=== PATIENT | male | born 1965 | race Caucasian/White ===

== ENCOUNTER 2017-04-14 00:15 | Inpatient (IN) | payer BC ==
[~2017-04-14] VITALS: Ht 172.7 cm; Wt 91.1 kg
[~2017-04-14 00:15] MED LIST: HYDROCODON-ACE1 EAC7 PO; VICODIN 5-3001 EACH PO
[2017-04-14 01:00] LABS: CHLORIDE 100 mEq/L (99-109); POTASSIUM 4.3 mEq/L (3.7-5.4); SODIUM 140 mEq/L (136-147)
[2017-04-14 01:02] LABS: HEMATOCRIT 43.4 % (38.0-50.0); MCH 29.6 PG (29.0-34.0); MCHC 31.8 G/DL (30.0-36.0); MCV 93.1 FL (86-99); MEAN PLAT.VOLUME 9.7 uM^3 (9.0-12.4); PLATELET COUNT 329 K/uL (156-360); RBC DIS.WIDTH-CV 13.1 % (11.8-14.6); RBC DIS.WIDTH-SD 44.5 % (39-53); RED BLOOD COUNT 4.66 M/uL (4.00-5.50); WHITE BLOOD COUNT 16.9 K/uL (4.1-10.2)
[2017-04-14 01:03] LABS: ANION GAP 19 MEQ/L (2-14)
[2017-04-14 01:05] LABS: GFR ESTIMATE (CALCULATED) 40 mL/min/
[2017-04-14 01:06] LABS: UREA NITROGEN (BUN) 18 mg/dL (9-23)
[2017-04-14 01:11] LABS: TROP-I INTERPRETATION NEGATIVE; TROPONIN-I < 0.01 ng/mL (0.0-0.30)
[2017-04-14 01:23] LABS: GLUCOSE 419 mg/dL (70-99)
[2017-04-14 01:47] LABS: SERUM ETHYL ALCOHOL < 10 mg/dL
[2017-04-14 03:21] LABS: BASE EXCESS 1.3 mEq/L (-3 to +3); BICARBONATE 30.1 mEq/L (22-26); CARBOXY HGB 1.9 % (0-5); METHEMOGLOBIN 1.2 % (0-1.5); PCO2 64 mm Hg (35-45); PO2 69 mm Hg (80-100); pH 7.28 (7.35-7.45)
[2017-04-14 03:22] LABS: FI02 60 %; O2 FLOW 50 L/MIN; SITE LB; TOTAL RESP RATE 22 resp/min
[2017-04-14 03:29] LABS: AMPHETAMINE NEGATIVE (500 ng/mL); BARBITURATES NEGATIVE (200 ng/mL); BENZODIAZEPINES NEGATIVE (150 ng/mL); COCAINE NEGATIVE (150 ng/mL); METHADONE NEGATIVE (200 ng/mL); METHAMPHETAMINE NEGATIVE (500 ng/mL); OPIATES (MORPHINE) NEGATIVE (100 ng/mL); PHENCYCLIDINE NEGATIVE (25 ng/mL); THC CANNABINOIDS NEGATIVE (50 ng/mL); TRICYCLIC ANTIDEPRESSANTS NEGATIVE (300 ng/mL)
[2017-04-14 03:30] LABS: INTERNAL CONTROLS VALID? YES; OXYCODONE PRESUMPTIVE POSITIVE (100 ng/mL); PROPOXYPHENE NEGATIVE (300 ng/mL)
[2017-04-14 05:25] LABS: POINT-OF-CARE METER ID UU13113702
[2017-04-14 05:55] LABS: TROP-I INTERPRETATION NEGATIVE; TROPONIN-I 0.11 ng/mL (0.0-0.30)
[2017-04-14 06:15] LABS: HEMATOCRIT 41.9 % (38.0-50.0); MCH 29.9 PG (29.0-34.0); MCHC 32.9 G/DL (30.0-36.0); MCV 90.9 FL (86-99); MEAN PLAT.VOLUME 9.2 uM^3 (9.0-12.4); PLATELET COUNT 265 K/uL (156-360); RBC DIS.WIDTH-CV 13.1 % (11.8-14.6); RBC DIS.WIDTH-SD 43.1 % (39-53); RED BLOOD COUNT 4.61 M/uL (4.00-5.50); WHITE BLOOD COUNT 7.3 K/uL (4.1-10.2)
[2017-04-14 07:45] LABS: POINT-OF-CARE METER ID UU13113781
[2017-04-14 07:51] VITALS: BP 114/61
[2017-04-14 10:44] LABS: POINT-OF-CARE METER ID UU13113781
[2017-04-14 12:24] LABS: TROP-I INTERPRETATION NEGATIVE; TROPONIN-I 0.19 ng/mL (0.0-0.30)
[2017-04-14 13:26] VITALS: BP 101/56
[2017-04-14] MEDS ORDERED: ACID CONTROL150 MG PO (14:06)
[2017-04-14] MEDS ORDERED: GLUCOSAMINE CH1 EAC2 PO (14:07)
[2017-04-14 15:11] VITALS: BP 99/57
[2017-04-14 16:06] LABS: POINT-OF-CARE METER ID UU14174216
[2017-04-14 19:28] VITALS: BP 117/57
[2017-04-14 21:20] LABS: POINT-OF-CARE METER ID UU13113781
[2017-04-14 22:12] LABS: Estimated Average Glucose 114 mg/dL (70-123); HEMOGLOBIN A1c (GLYCOHEMOGLOB) 5.6 % HGB (Below 5.7)
[2017-04-14 23:23] VITALS: BP 110/60
[2017-04-15 03:52] VITALS: BP 112/64
[2017-04-15 06:34] LABS: ALKALINE PHOSPHATASE 54 IU/L (3-129); ANION GAP 8 MEQ/L (2-14); CHLORIDE 100 MEQ/L (99-109); POTASSIUM 3.9 MEQ/L (3.7-5.4); SAMPLE HEMOLYSIS CHECK 0; SAMPLE ICTERIC CHECK 0; SAMPLE LIPEMIA CHECK 0; SODIUM 139 MEQ/L (136-147); TOTAL BILIRUBIN 0.5 MG/DL (0.0-1.0); UREA NITROGEN (BUN) 16 mg/dL (9-23)
[2017-04-15 06:35] LABS: GFR ESTIMATE (CALCULATED) > 59 mL/min/; GLUCOSE 109 mg/dL (70-99)
[2017-04-15 07:39] VITALS: BP 123/71
[2017-04-15 08:03] LABS: POINT-OF-CARE METER ID UU13113781
[2017-04-15 09:36] LABS: POINT-OF-CARE METER ID UU13113702
[2017-04-15 12:10] LABS: POINT-OF-CARE METER ID UU14174216
[2017-04-15] MEDS ORDERED: AUGMENTIN875 MG PO (15:45)
[2017-04-15] MEDS ORDERED: [UNRECOGNIZED DRUG - REMARK] (16:08)
[2017-04-15 16:19] LABS: POINT-OF-CARE METER ID UU14174216
[2017-04-15 17:17] VITALS: BP 128/68
== END 2017-04-15 17:24 | disposition home or self-care (01) | DRG 917 ==
LOC: EME 00:15 → 4EAST 04:30 → EDOF 04:30 → ENRESERV 04:31 → 4EAST 07:10
PROVIDERS: Emergency Medicine; Hospitalist; Internal Medicine; Physician Assistant
DX: T40.2X1A Poisoning by other opioids, accidental (unintentional), initial encounter (principal); J96.01 Acute respiratory failure with hypoxia; J96.02 Acute respiratory failure with hypercapnia; J81.0 Acute pulmonary edema; J69.0 Pneumonitis due to inhalation of food and vomit; N17.9 Acute kidney failure, unspecified; I48.0 Paroxysmal atrial fibrillation; T48.201A Poisoning by unspecified drugs acting on muscles, accidental (unintentional), initial encounter; T51.0X1A Toxic effect of ethanol, accidental (unintentional), initial encounter; R73.9 Hyperglycemia, unspecified; D72.823 Leukemoid reaction; K21.9 Gastro-esophageal reflux disease without esophagitis; F17.290 Nicotine dependence, other tobacco product, uncomplicated; Y92.009 Unspecified place in unspecified non-institutional (private) residence as the place of occurrence of the external cause; Z80.0 Family history of malignant neoplasm of digestive organs; Z80.1 Family history of malignant neoplasm of trachea, bronchus and lung; Z85.828 Personal history of other malignant neoplasm of skin; Z23 Encounter for immunization
CPT/HCPCS: 36600; 71010; 80048; 80053; 82803; 82948; 83036; 84484; 85027; 90686; 93005; 93306; 94799; 99281; 99285; G0480; J1815; J1940; J2310; J2405; J2543; J7030; J7042; J7050